=== PATIENT | male | born 1995 | race Caucasian/White ===

== ENCOUNTER 2017-01-21 10:55 | Emergency (ER) | payer OTHER | END 2017-01-21 12:30 | disposition other institution (70) | LOC: ED 10:55 | DX: Z02.89 Encounter for other administrative examinations (principal); S80.212A Abrasion, left knee, initial encounter; X58.XXXA Exposure to other specified factors, initial encounter; Y93.89 Activity, other specified; Y99.8 Other external cause status; Y92.89 Other specified places as the place of occurrence of the external cause ==

== ENCOUNTER 2017-01-21 10:55 | Emergency (ER) | payer OTHER ==
[~2017-01-21] VITALS: Ht 170.2 cm; Wt 63.5 kg
[2017-01-21 10:57] VITALS: BP 119/74
== END 2017-01-21 12:30 | disposition other institution (70) ==
LOC: ED 10:55
DX: S80.212A Abrasion, left knee, initial encounter (principal); X58.XXXA Exposure to other specified factors, initial encounter; Y92.89 Other specified places as the place of occurrence of the external cause; Y93.89 Activity, other specified; Y99.8 Other external cause status
CPT/HCPCS: 90715

== ENCOUNTER 2018-05-04 19:52 | Emergency (ER) | payer OTHER ==
[~2018-05-04] VITALS: Ht 170.2 cm; Wt 74.8 kg
[2018-05-04 19:59] VITALS: Ht 170.2 cm; Wt 74.8 kg
[2018-05-04 21:03] LABS: PLATELET COUNT 274 x10^3mcL (130-400); RED CELL DISTRIBUTION WIDTH 12.4 % (11.5-14.5)
[2018-05-04 21:09] LABS: BASOPHIL % 0 % (0-2)
[2018-05-04 21:18] LABS: CALCIUM 9.1 mg/dL (8.5-10.1); CARBON DIOXIDE 30.7 mmol/L (21-32); CHLORIDE SERUM 102 mmol/L (98-107); CREATININE SERUM 0.9 mg/dL (0.7-1.3); GFR1 > 60 mL/min; GLUCOSE SERUM 112 mg/dL (74-106); SODIUM SERUM 133 mmol/L (136-145)
[2018-05-04 21:23] LABS: ALKALINE PHOSPHATASE 107 U/L (46-116); ALT/SGPT 119 U/L (16-63); AST/SGOT 29 U/L (15-37); BILIRUBIN TOTAL 0.66 mg/dL (0.20-1.00); LIPASE 113 IU/L (73-393); TOTAL PROTEIN, SERUM 7.6 g/dL (6.4-8.2)
[2018-05-04 22:32] VITALS: BP 113/64
== END 2018-05-04 23:06 | disposition home or self-care (01) ==
LOC: ED 19:52
PROVIDERS: Emergency Medicine
DX: K52.9 Noninfective gastroenteritis and colitis, unspecified (principal); E87.6 Hypokalemia
CPT/HCPCS: J1885; J2405; J7030

== ENCOUNTER 2019-06-13 00:56 | Emergency (ER) | payer OTHER ==
[~2019-06-13] VITALS: Ht 170.2 cm; Wt 64.9 kg
[2019-06-13 01:03] VITALS: Ht 170.2 cm; Wt 64.9 kg
[2019-06-13 02:08] LABS: ALKALINE PHOSPHATASE 107 U/L (46-116); AST/SGOT 14 U/L (15-37); BASOPHIL % 0.1 % (0-2); BILIRUBIN TOTAL 0.78 mg/dL (0.20-1.00); CALCIUM 8.9 mg/dL (8.5-10.1); CARBON DIOXIDE 28.8 mmol/L (21-32); CHLORIDE SERUM 101 mmol/L (98-107); CREATININE SERUM 0.7 mg/dL (0.7-1.3); GFR1 > 60 mL/min; GLUCOSE SERUM 105 mg/dL (74-106); LIPASE 65 IU/L (73-393); PLATELET COUNT 286 x10^3mcL (130-400); RED CELL DISTRIBUTION WIDTH 11.5 % (11.5-14.5); SODIUM SERUM 141 mmol/L (136-145); TOTAL PROTEIN, SERUM 7.6 g/dL (6.4-8.2)
[2019-06-13 02:16] LABS: ALT/SGPT 25 U/L (16-63)
[2019-06-13 04:00] VITALS: BP 111/65
== END 2019-06-13 04:00 | disposition home or self-care (01) ==
LOC: ED 00:56
PROVIDERS: Emergency Medicine
DX: R11.10 Vomiting, unspecified (principal); R19.7 Diarrhea, unspecified; Z90.89 Acquired absence of other organs
CPT/HCPCS: J1885; J2405; J7030